=== PATIENT | female | born 1965 | race Caucasian/White ===

== ENCOUNTER 2018-09-21 13:48 | Outpatient (CLI) | payer BC | END 2018-09-21 13:49 | disposition home or self-care (01) | LOC: BICMAMMO 13:48 | PROVIDERS: ATTEND Family Medicine | DX: Z12.31 Encounter for screening mammogram for malignant neoplasm of breast (principal) | CPT/HCPCS: 77063; 77067 ==

== ENCOUNTER 2019-01-05 11:48 | Emergency (ER) | payer BC ==
--- NOTE | 2019-01-05 12:14 | RAD ---
1 VIEW CHEST: Date: 01/05/19 HISTORY: Left-sided chest pain. COMPARISON: None. FINDINGS: Normal cardiac silhouette. Pulmonary vessels and hilum are normal. Costophrenic angles are clear. No masses or consolidation. Hiatal hernia is noted. No pneumothorax or osseous abnormalities. IMPRESSION: No acute cardiopulmonary process. POS: [facility]
[2019-01-05 12:31] LABS: #Eosinphils 0.2 thou/uL (0.0-0.7); #Lymphocytes 2.5 thou/uL (1.20-3.40); #Monocytes 0.6 thou/uL (0.11-0.59); #Neutrophils 5.8 thou/uL (1.40-6.50); %Basophils 0.5 % (0.0-1.0); %Eosinophils 1.9 % (0.0-10.0); %Lymphocytes 27.2 % (21.0-51.0); %Monocytes 6.2 % (0.0-10.0); %Neutrophils 64.2 % (42.0-75.0); Hemoglobin 10.1 g/dL (12.0-16.0); Mean Corpuscular HGB CONC 30.7 g/dL (32.0-36.0); Mean Corpuscular Hemoglobin 23.1 pg (27.0-31.0); Mean Corpuscular Volume 75.2 fL (78.0-98.0); Mean Platelet Volume 8.8 fL (7.4-10.4); Platelet Count 373 thou/uL (130-400); RBC Distribution Width 16.7 % (11.5-14.5); Red Blood Cell (RBC) Count 4.38 mill/uL (4.20-5.40); White Blood Cell (WBC) Count 9.1 thou/uL (4.8-10.8)
[2019-01-05 12:59] LABS: ALT (SGPT) 23 U/L (8-55); AST (SGOT) 20 U/L (5-34); Albumin 3.9 g/dL (3.5-5.0); Alkaline Phosphatase 111 U/L (40-150); Anion Gap 14 mmol/L (10-20); BUN (Urea Nitrogen) 10 mg/dL (9.8-20.1); Bilirubin, Total 0.3 mg/dL (0.2-1.2); CK (CPK) 49 U/L (29-168); Calc. Creatinine Clearance 0 mL/min (70-130); Calcium 9.2 mg/dL (7.8-10.44); Carbon Dioxide 21 mmol/L (22-29); Chloride 107 mmol/L (98-107); Estimated GFR-MDRD 54; Globulin 3.5 g/dL (2.4-3.5); Glucose 121 mg/dL (70-105); Lipase 41 U/L (8-78); Potassium 4.8 mmol/L (3.5-5.1); Protein, Total 7.4 g/dL (6.0-8.3); Sodium 137 mmol/L (136-145)
== END 2019-01-05 14:27 | disposition home or self-care (01) ==
LOC: ERS 11:48
DX: R07.89 Other chest pain (principal); F41.9 Anxiety disorder, unspecified; F32.9 Major depressive disorder, single episode, unspecified
CPT/HCPCS: 36415; 71045; 80053; 82550; 83690; 84484; 85025; 93005

== ENCOUNTER 2020-08-22 09:29 | Outpatient (CLI) | payer BC ==
--- NOTE | 2020-08-22 14:44 | MRI ---
MRI ABDOMEN WITH AND WITHOUT IV CONTRAST AND MRCP 08/22/20 HISTORY: Abnormal ultrasound of the liver. FINDINGS: Correlation is made with the ultrasound abdomen of 08/12/20. The liver, spleen, pancreas, adrenal glands, kidneys and gallbladder appear normal. No abnormal bilia ry or pancreatic ductal dilatation is seen. The common duct measures 6 mm in diameter. No choledochol ithiasis or cholelithiasis is seen. No free fluid or lymphadenopathy is noted. The aorta is normal caliber. A moderate sized hiatal herni a is present. The bone signal is normal. IMPRESSION: Moderate sized hiatal hernia, otherwise unremarkable exam. POS: [facility]
== END 2020-08-22 09:30 | disposition home or self-care (01) ==
LOC: MRI 09:29 → SCSMRI 09:30
PROVIDERS: ATTEND Internal Medicine Gastroenterology
DX: R93.2 Abnormal findings on diagnostic imaging of liver and biliary tract (principal); K44.9 Diaphragmatic hernia without obstruction or gangrene
CPT/HCPCS: 74183

== ENCOUNTER 2021-03-11 20:16 | Emergency (ER) | payer BC | END 2021-03-11 22:25 | disposition home or self-care (01) | LOC: ERS 20:16 | DX: T18.128A Food in esophagus causing other injury, initial encounter (principal) | CPT/HCPCS: 70360 ==

== ENCOUNTER 2023-05-25 08:32 | Outpatient (CLI) | payer OTHER | END 2023-05-25 08:33 | disposition home or self-care (01) | LOC: BICMAMMO 08:32 | PROVIDERS: ATTEND Family Medicine | DX: Z12.31 Encounter for screening mammogram for malignant neoplasm of breast (principal) | CPT/HCPCS: 77063; 77067 ==